=== PATIENT | male | born 1975 | race Caucasian/White ===

== ENCOUNTER 2018-04-13 15:18 | Emergency (ER) | payer OTHER ==
[~2018-04-13] VITALS: Ht 175.3 cm; Wt 72.6 kg
[2018-04-13 15:44] VITALS: BP 130/83
--- NOTE | 2018-04-13 15:49 | ER.PDOC ---
General Chief Complaint: Toothache Stated Complaint: LT SWOLLEN JAW Time seen by MD: 15:33 Source: patient Exam Limitations: no limitations History of Present Illness Timing/Duration: gradual Context: fractured tooth Associated Symptoms: toothache, facial pain, swollen jaw, jaw pain (L) Severity: mild Worsen By: nothing Prior symptoms/Treatment: Similar symptoms previous Allergies: Coded Allergies: Penicillins (Verified Allergy, Unknown, UNSURE, 04/13/18) Home Meds No Active Prescriptions or Reported Meds Past Medical History Medical History: no pertinent history Surgical History: no surgical history Social History Smoking: cigarettes Alcohol Use: none Drug Use: none Reviewed Nursing Reviewed: Vital Signs, Abn. Noted All Other Systems: Reviewed and Negative Physical Exam General Appearance: alert, no distress Head/Neck: (L) mandibular swelling Eyes: eyes nml inspection, PERRL, no nystagmus Mouth: no drooling, no thrush, membranes nml, gum swelling, widespread dental decay Throat: pharynx nml, voice nml, no airway problems Ears/Nose: nml inspection Respiratory: no resp. distress, lungs clear CVS: reg. rate & rhythm, heart sounds nml Abdomen: non-tender, no organomegaly Extremities: non-tender, ROM nml Skin Exam: Normal Color, Warm/Dry NEURO/PSYCH: oriented X3, mood/effect nml Incision and Drainage Incision and Drainage : Site: apical abscess l jaw Blade Size: 11 I & D Procedure: probe/break up loculation, culture/gram stain Departure Time of Disposition: 15:33 Disposition: 01 HOME, SELF-CARE Impression: Primary Impression: Abscess of mandible Condition: Improved Referrals: PCP,UNKNOWN (PCP) PRIMARY CARE PROVIDER Scripts No Active Prescriptions or Reported Meds Duration or Time Spent with Pa: 1 hr JAILENE LEWIS MD Apr 13, 2018 15:49
[2018-04-13] MEDS ORDERED: CETACAINE SPRAY TP ONE (16:07)
[2018-04-13 16:45] VITALS: BP 144/89
[2018-04-13 16:46] VITALS: BP 144/88
== END 2018-04-13 17:00 | disposition home or self-care (01) ==
LOC: ER 15:18
DX: M27.2 Inflammatory conditions of jaws (principal); Z88.0 Allergy status to penicillin; F17.210 Nicotine dependence, cigarettes, uncomplicated
CPT/HCPCS: 41800; 99283